=== PATIENT | male | born 1985 | race Caucasian/White ===

== ENCOUNTER 2020-10-30 06:39 | Day surgery (SDC) | payer OTHER ==
[~2020-10-30] VITALS: Ht 177.8 cm; Wt 104.3 kg
[~2020-10-30 06:39] MED LIST: NS 1,000 ML IV ONE; OMEP40CA4 PO
[2020-10-30] MEDS ORDERED: propofoL 200 MG/20 ML VIAL As Ordered ONE (07:12)
[2020-10-30] MEDS ORDERED: LIDOCAINE 2% 100MG/5ML SDV (FOR ANES.) As Ordered ONE (07:12)
[2020-10-30] MEDS ORDERED: fentaNYL 100 MCG/2 ML INJECTION (J3010) As Ordered ONE (07:12)
--- NOTE | 2020-10-30 07:46 | ROOR ---
Patient Name: Elio Sorenson Procedure Date: 10/30/2020 7:33 AM Date of : 1985 Age: 35 Room: [facility] Gender: Male Note Status: Finalized Procedure: Upper Endoscopy + Biopsies Indications: Heartburn, Failure to respond to medical treatment Providers: Gigi Napoles MD Referring MD: MARTIN SALAZAR MD Requesting Provider: Medicines: Monitored Anesthesia Care Complications: No immediate complications. Procedure: Pre-Anesthesia Assessment: - The heart rate, respiratory rate, oxygen saturations, blood pressure, adequacy of pulmonary ventilation, and response to care were monitored throughout the procedure. The Endoscope was introduced through the mouth, with the intention of advancing to the stomach. The scope was advanced to the gastric cardia before the procedure was aborted. Medications were given. The upper GI endoscopy was accomplished without difficulty. The patient tolerated the procedure well. The procedure was aborted due to presence of food. The upper GI endoscopy was accomplished without difficulty. The patient tolerated the procedure well. Findings: The Z-line was regular and was found 40 cm from the incisors. Mucosal changes including ringed esophagus were found in the lower third of the esophagus. Biopsies were taken with a cold forceps for histology. Food (residue) was found in the cardia. Impression: - The procedure was aborted due to presence of food. - Z-line regular, 40 cm from the incisors. - Esophageal mucosal changes suggestive of eosinophilic esophagitis. Biopsied. - Food (residue) in the stomach. - The examination was otherwise normal. Recommendation: - Await pathology results. - Discharge patient to home. - Resume previous diet. - Continue present medications. - Await pathology results. - Telephone GI clinic for pathology results in 1 week. - Return to referring physician. - The findings and recommendations were discussed with the patient. Procedure Code(s): --- Professional --- 48226, 52, Esophagogastroduodenoscopy, flexible, transoral; with biopsy, single or multiple Diagnosis Code(s): --- Professional --- Z53.8, Procedure and treatment not carried out for other reasons K22.8, Other specified diseases of esophagus R12, Heartburn CPT copyright 2019 [employer]. All rights reserved. The codes documented in this report are preliminary and upon seafood and service meat manager review may be revised to meet current compliance requirements. Gigi Napoles MD Gigi Napoles MD 10/30/2020 7:46:03 AM Electronically signed by Gigi Napoles MD Number of Addenda: 0 Note Initiated On: 10/30/2020 7:33 AM Estimated Blood Loss: Estimated blood loss: none.
[2020-10-30 08:10] VITALS: BP 128/76
== END 2020-10-30 08:18 | disposition home or self-care (01) ==
LOC: M OPP 06:39
PROVIDERS: ATTEND Internal Medicine Gastroenterology
DX: K22.8 Other specified diseases of esophagus (principal); R12 Heartburn; Z53.8 Procedure and treatment not carried out for other reasons
CPT/HCPCS: 43239; 88305; J3010